=== PATIENT | male | born 1960 | race Caucasian/White ===

== ENCOUNTER → 2018-03-11 | Outpatient (CLI) | payer OTHER | LOC: GMAB 14:32 | PROVIDERS: ATTEND Family Medicine | DX: N40.1 Benign prostatic hyperplasia with lower urinary tract symptoms (principal) ==

== ENCOUNTER 2018-09-01 13:05 | Emergency (ER) | payer SELFPAY ==
[2018-09-01] MEDS ORDERED: SODIUM CHLORIDE 0.9% 1000ML 1,000 ML IVS ONE (13:06)
[2018-09-01] MEDS ORDERED: ADENOSINE INJ 6 MG/2 ML SYG IV ONE ×2 (13:39→13:41)
--- NOTE | 2018-09-01 13:40 | RAD ---
EXAM DESCRIPTION: Chest,1 View CLINICAL HISTORY: SVT COMPARISON: Chest radiograph dated June 09, 2013 Findings: Single upright portable frontal view of the chest. Mild tortuosity noted of the thoracic aorta. Cardiac silhouette and pulmonary vascularity are within normal limits. Lungs are clear without focal consolidative infiltrates. Costophrenic angles are sharp. No pneumothorax. No acute osseous abnormality. IMPRESSION: No radiographic evidence for acute cardiopulmonary process. Electronically signed by: Tarik Dahl MD 09/01/2018 1:39 PM CDT
[2018-09-01] MEDS ORDERED: ASPIRIN TABLET 325 MG TAB PO ONE (14:47)
[2018-09-01] MEDS ORDERED: METOPROLOL TARTRATE 25 MG TAB PO ONE (14:47)
--- NOTE | 2018-09-01 18:03 | ED.PDOC ---
History of Present Illness - General Chief Complaint: Chest Pain/[place] Stated Complaint: Chest discomfort, fluttering sensation Time Seen by Provider: 09/01/18 13:09 Source: patient Exam Limitations: no limitations - History of Present Illness Initial Comments: the patient is a 58-year-old male presenting to the emergency room secondary to a feeling of palpitations and mild dizziness started about 15 minutes prior to arrival. He has had a history of SVT in the past at least 1 time. He reports that it feels like this. He does have a very mild substernal chest discomfort rated at about a 2 out of 10 with this. He is not diaphoretic. He does not appear to be in distress. His heart rate is in the 160s to 170s and is very regular. He has pleasant and cooperative. He wasn't doing anything unusual when it started. He has been drinking a little bit more coffee recently. He has also been off of his lisinopril recently. Timing/Duration: 1/2 hour Severity: moderate Improving Factors: nothing Worsening Factors: nothing Allergies/Adverse Reactions: Allergies NO KNOWN ALLERGY Allergy (Unverified 11/13/12 10:13) Home Medications: Ambulatory Orders Lisinopril 10 mg PO DAILY #30 tab 09/01/18 Metoprolol Succinate [Metoprolol Succinate ER] 25 mg PO DAILY #30 tab 09/01/18 Review of Systems - Review of Systems Constitutional: States: no symptoms reported EENTM: States: no symptoms reported Respiratory: States: short of breath - very mild with this Cardiology: States: see HPI Gastrointestinal/Abdominal: States: no symptoms reported Genitourinary: States: no symptoms reported Musculoskeletal: States: no symptoms reported Skin: States: no symptoms reported Neurological: States: no symptoms reported Endocrine: States: no symptoms reported All other Systems: No Change from Baseline Past Medical History (General) - Patient Medical History Hx Seizures: No Hx Stroke: No Hx Dementia: No Hx Asthma: Yes Hx of COPD: No Hx Cardiac Disorders: No Hx Congestive Heart Failure: No Hx Pacemaker: No Hx Hypertension: Yes Hx Thyroid Disease: No Hx Diabetes: No Hx Gastroesophageal Reflux: No Hx Renal Disease: No Hx Cancer: No Hx of HIV: No Hx Hepatitis C: No Hx MRSA: No Surgical History: no surgical history - Vaccination History Hx Tetanus, Diphtheria Vaccination: No Hx Influenza Vaccination: No Hx Pneumococcal Vaccination: No Immunizations Up to Date: No - Social History Hx Tobacco Use: No Hx Chewing Tobacco Use: No Hx Alcohol Use: No Hx Substance Use: No Hx Substance Use Treatment: No Hx Depression: No Feels Threatened In Home Enviroment: No Feels Threatened In a Relationship: No Hx Physical Abuse: No Hx Emotional Abuse: No Hx Suspected Abuse: No - Activities of Daily Living Hospice Agency (if applicable):: None - Female History Patient is a Female of Child Bearing Age (10 -59 yrs old): No Patient : No Family Medical History - Family History Father Family History: No Known Physical Exam - Physical Exam General Appearance: Alert, Anxious, No apparent distress Eye Exam: bilateral normal Ears, Nose, Throat: hearing grossly normal, normal ENT inspection, normal pharynx Neck: full range of motion, supple Respiratory: lungs clear, normal breath sounds, no respiratory distress, no accessory muscle use Cardiovascular/Chest: normal peripheral pulses, no edema, tachycardia Peripheral Pulses: radial,right: 2+, radial,left: 2+, dorsalis pedis,right: 2+, dorsalis pedis,left: 2+ Gastrointestinal/Abdominal: non tender, soft Rectal Exam: deferred Back Exam: normal inspection, no CVA tenderness, no vertebral tenderness Extremity: normal range of motion, non-tender, normal inspection, no pedal edema , normal capillary refill Neurologic: retail coordinator II-XII nml as tested, alert, normal mood/affect, oriented x 3 Skin Exam: normal color Comments: Vital Signs - 24 hr 09/01/18 09/01/18 09/01/18 13:06 13:08 13:22 Temperature 98.1 F Pulse Rate [ 160 H 168 H 160 H Apical] Respiratory 22 18 Rate Blood Pressure 133/113 164/98 [Left Arm] O2 Sat by Pulse 94 L Oximetry 09/01/18 09/01/18 09/01/18 13:23 13:25 13:50 Temperature Pulse Rate [ 175 H 83 94 H Apical] Respiratory 18 18 18 Rate Blood Pressure 162/98 151/98 145/95 [Left Arm] O2 Sat by Pulse 94 L 96 96 Oximetry 09/01/18 09/01/18 09/01/18 14:23 14:43 15:25 Temperature Pulse Rate [ 97 H 100 H 95 H Apical] Respiratory 16 18 18 Rate Blood Pressure 142/95 140/97 149/102 [Left Arm] O2 Sat by Pulse 96 95 95 Oximetry 09/01/18 15:50 Temperature Pulse Rate [ 87 Apical] Respiratory 18 Rate Blood Pressure 125/92 [Left Arm] O2 Sat by Pulse 94 L Oximetry Progress - Progress Progress: 09/01/18 18:05 the patient is a 58-year-old male presenting to the emergency room secondary to moderately symptomatic SVT. The patient failed to cardiovert with vasovagal maneuvers or carotid massage. The patient was displaying some mild ST segment depressions in lateral leads so the decision was made to use adenosine for cardioversion. After risks and benefits were explained to patient did agree to proceed. Initial trial of 6 mg of adenosine failed cardiovert but 12 mg was successful. The patient was followed for approximately 5 hours with repeat cardiac enzymes showing no evidence of any rise. The patient is asymptomatic at this time. I am going to place the patient on aspirin daily as well as metoprolol extended release 25 mg daily. He should contact his tube blower for a repeat stress test as the EKG changes seen while the patient' s heart rate was rapid could possibly be indicative of an area of slightly inadequate blood flow with extreme exertion of the heart. ER warnings were given for any worsening. Continue to follow daily blood pressures and heart rates. He will be written for another prescription of lisinopril 10 mg daily. - Results/Orders Results/Orders: 09/01/18 13:15 Telemetry .CONTINUOUS EKG STAT 09/01/18 13:30 EKG STAT 09/01/18 Dinner Regular Diet 09/02/18 13:15 EKG STAT Laboratory Results - last 24 hr 09/01/18 09/01/18 09/01/18 13:19 13:19 13:19 WBC 10.7 RBC 5.41 Hgb 16.4 Hct 49.6 MCV 91.8 MCH 30.2 MCHC 33.0 RDW 14.0 Plt Count 223 MPV 8.4 Absolute Neuts (auto) 6.60 Absolute Lymphs (auto) 2.80 Absolute Monos (auto) 0.80 Absolute Eos (auto) 0.50 H Absolute Basos (auto) 0.10 Neutrophils % 61.5 Lymphocytes % 26.4 Monocytes % 7.2 Eosinophils % 4.4 Basophils % 0.5 PT 10.1 INR 1.01 PTT (SP) 25.2 D-Dimer, Quantitative 0.42 Sodium 138 Potassium 4.0 Chloride 107 Carbon Dioxide 22 Anion Gap 13.0 BUN 12 Creatinine 0.89 BUN/Creatinine Ratio 13.5 Random Glucose 124 H Serum Osmolality 276.9 Calcium 10.4 H Magnesium 2.1 Total Bilirubin 0.7 AST 24 ALT 26 Alkaline Phosphatase 66 Creatine Kinase 99 CK-MB (CK-2) 2.2 CK-MB (CK-2) % Not Reportable Troponin I < 0.02 B-Natriuretic Peptide 61.9 Serum Total Protein 7.4 Albumin 4.2 Globulin 3.2 Albumin/Globulin Ratio 1.3 TSH 1.20 09/01/18 17:10 WBC RBC Hgb Hct MCV MCH MCHC RDW Plt Count MPV Absolute Neuts (auto) Absolute Lymphs (auto) Absolute Monos (auto) Absolute Eos (auto) Absolute Basos (auto) Neutrophils % Lymphocytes % Monocytes % Eosinophils % Basophils % PT INR PTT (SP) D-Dimer, Quantitative Sodium Potassium Chloride Carbon Dioxide Anion Gap BUN Creatinine BUN/Creatinine Ratio Random Glucose Serum Osmolality Calcium Magnesium Total Bilirubin AST ALT Alkaline Phosphatase Creatine Kinase 101 CK-MB (CK-2) 2.1 CK-MB (CK-2) % Not Reportable Troponin I < 0.02 B-Natriuretic Peptide Serum Total Protein Albumin Globulin Albumin/Globulin Ratio TSH chest x-ray is within normal limits. Initial EKG shows supraventricular tachycardia at a rate of 166 bpm. Poor R- wave progression in anterior leads which is not necessarily a new thing for him. Mild ST segment depression in leads V4 and V5 and possibly lead 1 initially. There does appear to be some QT prolongation with this. EKG is repeated after cardioversion showing mild sinus tachycardia at 100 bpm. EG interval has corrected. Still poor R-wave progression. No evidence of ST segment depression in lateral leads. - EKG/XRAY/CT CT Ordered: No CT Interpretation Call Back: No Departure - Departure Clinical Impression: SVT (supraventricular tachycardia) Disposition: Discharge to Home or Self Care Condition: Fair Departure Forms: ED Discharge - Pt. Copy, Patient Portal Self Enrollment Instructions: Supraventricular Tachycardia (SVT) Diet: low fat, low cholesterol, low salt diet Activity: increase activity as tolerated Prescriptions: Lisinopril 10 mg PO DAILY #30 tab Metoprolol Succinate [Metoprolol Succinate ER] 25 mg PO DAILY #30 tab Home Medications: Ambulatory Orders Lisinopril 10 mg PO DAILY #30 tab 10/16/18 Metoprolol Succinate [Metoprolol Succinate ER] 25 mg PO DAILY #30 tab 09/01/18 Additional Instructions: the patient is a 58-year-old male presenting to the emergency room secondary to moderately symptomatic SVT. The patient failed to cardiovert with vasovagal maneuvers or carotid massage. The patient was displaying some mild ST segment depressions in lateral leads so the decision was made to use adenosine for cardioversion. Initial trial of 6 mg of adenosine failed cardiovert but 12 mg was successful. The patient was followed for approximately 5 hours with repeat cardiac enzymes showing no evidence of any rise. The patient is asymptomatic at this time. I am going to place the patient on aspirin daily as well as metoprolol extended release 25 mg daily. He should contact his tube blower for a repeat stress test as the EKG changes seen while the patient's heart rate was rapid could possibly be indicative of an area of slightly inadequate blood flow with extreme exertion of the heart. ER warnings were given for any worsening. Continue to follow daily blood pressures and heart rates. He will be written for another prescription of lisinopril 10 mg daily.
[2018-09-01 19:04] VITALS: BP 143/86; TEMP 98; O2SAT 97
== END 2018-09-01 18:25 | disposition home or self-care (01) ==
LOC: ER 13:05
DX: I47.1 Supraventricular tachycardia (principal); J45.909 Unspecified asthma, uncomplicated; I10 Essential (primary) hypertension; Z79.899 Other long term (current) drug therapy
CPT/HCPCS: 36415; 71045; 80053; 82550; 82553; 83735; 83880; 84443; 84484; 85025; 85379; 85610; 85730; 93005; J0153; J7030

== ENCOUNTER → 2018-12-29 | Outpatient (CLI) | payer OTHER | LOC: YCFC.O 09:39 | PROVIDERS: ATTEND Family Medicine | DX: Z00.00 Encounter for general adult medical examination without abnormal findings (principal) ==

== ENCOUNTER → 2019-04-21 | Outpatient (CLI) | payer OTHER | LOC: LAB.O 15:23 | PROVIDERS: ATTEND Urology | DX: R97.20 Elevated prostate specific antigen [PSA] (principal) ==

== ENCOUNTER 2019-12-11 03:50 | Emergency (ER) | payer SELFPAY ==
[2019-12-11] MEDS ORDERED: ADENOSINE INJ 6 MG/2 ML SYG IV ONE (04:03)
--- NOTE | 2019-12-11 04:05 | ED.PDOC ---
History of Present Illness - General Chief Complaint: Chest Pain/[place] Stated Complaint: chest pain Time Seen by Provider: 12/11/19 04:02 Source: patient Exam Limitations: no limitations - History of Present Illness Initial Comments: 59 yo M with PMH sig for SVT x2 episodes who presents for palpitations onset after a very spicy meal at 9pm last night, constant with associated CP, feeling that it is taking his breath away. Denies f/c, cough, congestion, VIERA, weakness, numbness, back pain, abd pain, n/v/d, edema. Allergies/Adverse Reactions: Allergies NO KNOWN ALLERGY Allergy (Unverified 11/13/12 10:13) Home Medications: Ambulatory Orders Lisinopril 10 mg PO DAILY #30 tab 09/01/18 Metoprolol Succinate [Metoprolol Succinate ER] 25 mg PO DAILY #30 tab 09/01/18 Review of Systems - Review of Systems Constitutional: Denies: chills, fever EENTM: Denies: nose congestion, throat pain Respiratory: States: short of breath. Denies: cough, stridor, wheezing Cardiology: States: chest pain, palpitations. Denies: edema, syncope Gastrointestinal/Abdominal: Denies: abdominal pain, diarrhea, nausea, vomiting Genitourinary: Denies: dysuria, frequency, hematuria Musculoskeletal: Denies: back pain, neck pain Skin: Denies: lesions, rash Neurological: Denies: headache, numbness, weakness Past Medical History (General) - Patient Medical History Hx Seizures: No Hx Stroke: No Hx Dementia: No Hx Asthma: Yes Hx of COPD: No Hx Cardiac Disorders: No Hx Congestive Heart Failure: No Hx Pacemaker: No Hx Hypertension: Yes Hx Thyroid Disease: No Hx Diabetes: No Hx Gastroesophageal Reflux: No Hx Renal Disease: No Hx Cancer: No Hx of HIV: No Hx Hepatitis C: No Hx MRSA: No Surgical History: no surgical history - Vaccination History Hx Tetanus, Diphtheria Vaccination: No Hx Influenza Vaccination: No Hx Pneumococcal Vaccination: No - Social History Hx Tobacco Use: No Hx Chewing Tobacco Use: No Hx Alcohol Use: Yes - seldom Hx Substance Use: No Hx Substance Use Treatment: No Hx Depression: No Hx Physical Abuse: No Hx Emotional Abuse: No Hx Suspected Abuse: No - Female History Patient : No Family Medical History - Family History Father Family History: No Known Mother Hx Family Hypertension: Yes Hx Cardiac Disease: Yes Physical Exam - Physical Exam General Appearance: Alert, Comfortable, No apparent distress, Well Developed, Well Nourished Eyes, Ears, Nose, Throat Exam: normal ENT inspection Neck: full range of motion, supple Respiratory: lungs clear, normal breath sounds, no respiratory distress, no accessory muscle use Cardiovascular/Chest: normal peripheral pulses, no edema, no gallop, no JVD, no murmur, tachycardia Peripheral Pulses: radial,right: 1+, radial,left: 1+ Gastrointestinal/Abdominal: non tender, soft, no organomegaly, no pulsatile mass Extremity: normal range of motion, non-tender, normal inspection, no pedal edema, no calf tenderness, normal capillary refill Neurologic: no motor/sensory deficits, alert, normal mood/affect, oriented x 3 Skin Exam: normal color, warm/dry Progress - Progress Progress: 12/11/19 04:21 Pt converted with 6mg of adenosine, will monitor. 12/11/19 06:53 Pt has remained asymptomatic, no repeat episodes of SVT, however troponin now elevated. Will plan on transfer. All questions and concerns addressed. Pt agrees with plan. Pt's motor installer is in [place], will plan for transfer to [facility]. Marisol Monteiro MD Emergency Medicine Physician Billing Number [id number] - Results/Orders Results/Orders: 12/11/19 04:15 EKG STAT Laboratory Results - last 24 hr 12/11/19 12/11/19 12/11/19 04:14 04:14 04:14 WBC 11.1 H RBC 5.29 Hgb 15.9 Hct 47.0 MCV 88.9 MCH 30.1 MCHC 33.8 RDW 13.7 Plt Count 284 MPV 8.0 Absolute Neuts (auto) 7.10 H Absolute Lymphs (auto) 2.70 Absolute Monos (auto) 1.00 H Absolute Eos (auto) 0.20 Absolute Basos (auto) 0.10 Neutrophils % 63.7 Lymphocytes % 24.3 Monocytes % 9.0 Eosinophils % 2.0 Basophils % 1.0 Sodium 135 Potassium 4.6 Chloride 103 Carbon Dioxide 21 Anion Gap 15.6 BUN 15 Creatinine 1.05 BUN/Creatinine Ratio 14.3 Random Glucose 124 H Serum Osmolality 272.3 L Calcium 11.9 H Total Bilirubin 1.0 AST 27 ALT 32 Alkaline Phosphatase 58 Troponin I 0.04 Serum Total Protein 7.4 Albumin 4.2 Globulin 3.2 Albumin/Globulin Ratio 1.3 12/11/19 06:27 WBC RBC Hgb Hct MCV MCH MCHC RDW Plt Count MPV Absolute Neuts (auto) Absolute Lymphs (auto) Absolute Monos (auto) Absolute Eos (auto) Absolute Basos (auto) Neutrophils % Lymphocytes % Monocytes % Eosinophils % Basophils % Sodium Potassium Chloride Carbon Dioxide Anion Gap BUN Creatinine BUN/Creatinine Ratio Random Glucose Serum Osmolality Calcium Total Bilirubin AST ALT Alkaline Phosphatase Troponin I 0.07 H* Serum Total Protein Albumin Globulin Albumin/Globulin Ratio CXR: CHEST, ONE VIEW XR CLINICAL HISTORY: Chest pain COMPARISON: 09/01/2018 TECHNIQUE: AP Chest. FINDINGS: [Normal cardiac size. Pulmonary vasculature appears normal. Normal cardiomediastinal contours. Lungs are clear. Pleural spaces are clear. Unremarkable soft tissues and bones.] IMPRESSION: 1. No acute chest disease. Electronically signed by: Swapna Lyon DO 12/11/2019 5:24 AM EVENTS MANAGER Vital Signs - 24 hr 12/11/19 12/11/19 12/11/19 03:55 04:08 04:20 Temperature 98.6 F 98.6 F Pulse Rate [ 158 H 153 H 118 H left arm] Respiratory 16 18 18 Rate Blood Pressure 130/87 127/86 [Left Arm] O2 Sat by Pulse 99 95 Oximetry 12/11/19 12/11/19 12/11/19 04:29 05:02 06:00 Temperature 98.6 F 98.6 F Pulse Rate [ 88 89 84 left arm] Respiratory 18 18 18 Rate Blood Pressure 127/86 119/88 118/86 [Left Arm] O2 Sat by Pulse 95 95 95 Oximetry - EKG/XRAY/CT EKG: no ST T wave changes Comments: SVT, rate of 149 - Additional EKG/XRAY/Consults EKG #2: Tachy, no ST T wave changes Comments: Rate 103, Sinus Departure - Departure Clinical Impression: SVT (supraventricular tachycardia) Time of Disposition: 06:52 Disposition: Transfer to Hospital Condition: Fair Departure Forms: ED Discharge - Pt. Copy, Patient Portal Self Enrollment Instructions: Supraventricular Tachycardia (SVT) Home Medications: Ambulatory Orders Lisinopril 10 mg PO DAILY #30 tab 09/01/18 Metoprolol Succinate [Metoprolol Succinate ER] 25 mg PO DAILY #30 tab 09/01/18 Additional Instructions: Follow up: [facility], As needed, if symptoms worsen Your Primary Care Physician Make appointment, two days, for follow up Your motor installer, Make appointment, two days, for follow up
--- NOTE | 2019-12-11 05:25 | RAD ---
CHEST, ONE VIEW XR CLINICAL HISTORY: Chest pain COMPARISON: 09/01/2018 TECHNIQUE: AP Chest. FINDINGS: [Normal cardiac size. Pulmonary vasculature appears normal. Normal cardiomediastinal contours. Lungs are clear. Pleural spaces are clear. Unremarkable soft tissues and bones.] IMPRESSION: 1. No acute chest disease. Electronically signed by: Swapna Lyon DO 12/11/2019 5:24 AM DESIGN DRAFTSMAN
[2019-12-11 07:49] VITALS: BP 125/96; TEMP 98.5; O2SAT 97
== END 2019-12-11 07:45 | disposition home or self-care (01) ==
LOC: ER 03:50
DX: I47.1 Supraventricular tachycardia (principal); I10 Essential (primary) hypertension; J45.909 Unspecified asthma, uncomplicated; Z79.899 Other long term (current) drug therapy
CPT/HCPCS: 71045; 80053; 84484; 85025; 93005; J0153

== ENCOUNTER → 2019-12-22 | Outpatient (CLI) | payer BC | LOC: LAB.O 12:07 | PROVIDERS: ATTEND Family Medicine | DX: E78.5 Hyperlipidemia, unspecified (principal) ==

== ENCOUNTER → 2020-06-05 | Outpatient (CLI) | payer BC | LOC: YCFC.O 06:56 | PROVIDERS: ATTEND Family Medicine | DX: E78.5 Hyperlipidemia, unspecified (principal) ==